=== PATIENT | female | born 1995 | race Caucasian/White ===

== ENCOUNTER 2017-05-12 12:34 | Emergency (ER) | payer OTHER, MEDICAID ==
[~2017-05-12 12:34] MED LIST: COLACE 100MG C100 MG PO; IBUPROFEN600 MG PO; NORCO 5-325 TA1 EACH PO
== END 2017-05-12 14:40 | disposition home or self-care (01) ==
LOC: ER1 12:34
DX: S00.01XA Abrasion of scalp, initial encounter (principal); S50.812A Abrasion of left forearm, initial encounter; V46.5XXA Car driver injured in collision with other nonmotor vehicle in traffic accident, initial encounter; Y93.89 Activity, other specified; Y92.410 Unspecified street and highway as the place of occurrence of the external cause; Z23 Encounter for immunization
CPT/HCPCS: 90471; 90714; 99284